=== PATIENT | male | born 1990 | race Caucasian/White ===

== ENCOUNTER 2017-04-24 13:18 | Emergency (ER) | payer MEDICAID, SELFPAY ==
[2017-04-24 13:19] VITALS: BP 138/86; PULSE 85; RESP 18; O2SAT 96; BMI 28.1
--- NOTE | 2017-04-24 13:37 | XR_ITS ---
XR femur LT 2V CLINICAL INDICATION: Posttraumatic pain with laceration ITS.REASON: trauma ORDERING PHYSICIAN: Lorraine Valerio MD PATIENT AGE: 26 years COMPARISON: None FINDINGS: Soft tissue gas present along the distal leg laterally at the lateral femoral condylar region. No acute fracture or dislocation. IMPRESSION: Laceration with soft tissue gas distally and laterally otherwise negative
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
[2017-04-24 14:24] VITALS: BP 142/79; PULSE 80; RESP 18; TEMP 36.7; O2SAT 98
== END 2017-04-24 14:24 | disposition home or self-care (01) ==
PROVIDERS: Emergency Provider Emergency Medicine
DX: S71.112A Laceration without foreign body, left thigh, initial encounter (principal); W22.8XXA Striking against or struck by other objects, initial encounter; Y92.89 Other specified places as the place of occurrence of the external cause
CPT/HCPCS: 12002; 73552; 99282

== ENCOUNTER 2023-09-06 20:42 | Emergency (ER) | payer MEDICAID, SELFPAY ==
[2023-09-06 20:37] VITALS: BP 162/107; PULSE 86; O2SAT 95
[2023-09-06 20:42] VITALS: BP 162/107; PULSE 97; RESP 18; TEMP 36.9; O2SAT 96; BMI 31.3
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
[2023-09-06] MEDS: MORPHINE 2MG/ML SYRINGE 2 MG IM (20:51)
[2023-09-06 21:00] VITALS: BP 139/94; PULSE 101; O2SAT 94
--- NOTE | 2023-09-06 21:04 | PC.NURSE ---
patient to radiology
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
--- NOTE | 2023-09-06 21:14 | PC.NURSE ---
patient back in room
[2023-09-06 21:30] VITALS: BP 146/103; PULSE 92; O2SAT 96
--- NOTE | 2023-09-06 21:41 | PC.NURSE ---
Assisted Dr Miguel with laceration repair of the upper lip
--- NOTE | 2023-09-06 22:06 | PC.NURSE ---
patients updated on his status
--- NOTE | 2023-09-06 22:07 | PC.NURSE ---
removed c-collar per verbal order md. patient offered water to drink at this time. update provided to both patient and his that we are waiting on one more ct scan to result
[2023-09-06 22:10] VITALS: BP 136/93; PULSE 84; RESP 15; TEMP 36.5; O2SAT 97
== END 2023-09-06 22:15 | disposition home or self-care (01) ==
PROVIDERS: Emergency Provider Emergency Medicine
DX: S01.511A Laceration without foreign body of lip, initial encounter (principal); Y04.8XXA Assault by other bodily force, initial encounter
CPT/HCPCS: 12011; 70450; 70486; 72125; 96372; 99285; J2270